=== PATIENT | female | born 1965 | race Caucasian/White ===

== ENCOUNTER 2017-08-16 14:42 | Emergency (ER) | payer SELFPAY ==
--- NOTE | 2017-08-16 15:59 | ED ---
Adult Trauma - HPI Summary HPI Summary: 51 yr old female with the complaint of left side chest wall pain and back pain. THe patient fell at work three days ago, and landed on her side. She has pain in the mid t spine, and also in the left lateral ribs. Pain is 7/10, worse with movement and change in position. Denies SOB. No other injuries. No LOC. No neck pain. No numbness or weakness in arms or legs. - History of Current Complaint Chief Complaint: UCChestPain Stated Complaint: WC - FALL,RIB COMPLAINT Time Seen by Provider: 08/16/17 15:45 - Allergy/Home Medications Allergies/Adverse Reactions: Allergies Allergy/AdvReac Type Severity Reaction Status Date / Time No Known Allergies Allergy Verified 08/16/17 15:16 Home Medications: Home Medications Ibuprofen TAB* [Advil TAB*] 600 mg PO Q6H PRN 08/16/17 [History Confirmed ] Levothyroxine TAB* [Synthroid TAB*] 88 mcg PO 0800 08/16/17 [History Confirmed 08/16/17] PMH/Surg Hx/FS Hx/Imm Hx Endocrine/Hematology History: Reports: Hx Thyroid Disease - s/p Thyroidectomy - Surgical History Surgery Procedure, Year, and Place: Thyroidectomy Infectious Disease History: No Infectious Disease History: Denies: Traveled Outside the [place] in Last 30 Days - Family History Known Family History: Positive: None - Social History Alcohol Use: Weekly Substance Use Type: Reports: None Smoking Status (MU): Heavy Every Day Tobacco Smoker Type: Cigarettes Amount Used/How Often: 1/2 PPD Length of Time of Smoking/Using Tobacco: Since Age 16 Have You Smoked in the Last Year: Yes Review of Systems Constitutional: Negative Positive: Other - chest wall pain All Other Systems Reviewed And Are Negative: Yes Physical Exam Triage Information Reviewed: Yes Vital Signs On Initial Exam: Initial Vitals Temp Pulse Resp BP Pulse Ox 98.4 F 78 16 130/72 97 08/16/17 15:13 08/16/17 15:13 08/16/17 15:13 08/16/17 15:13 08/16/17 15:13 Vital Signs Reviewed: Yes Appearance: Positive: Well-Appearing, No Pain Distress Skin: Positive: Warm, Skin Color Reflects Adequate Perfusion Head/Face: Positive: Normal Head/Face Inspection Eyes: Positive: EOMI ENT: Positive: Normal ENT inspection Neck: Positive: Nontender Respiratory/Lung Sounds: Positive: Clear to Auscultation, Breath Sounds Present , Other - tender over the left side of her chest with a small dime size bruise. Cardiovascular: Positive: RRR. Negative: Murmur Abdomen Description: Positive: Nontender Musculoskeletal: Positive: Strength/ROM Intact Neurological: Positive: Sensory/Motor Intact, Alert, Oriented to Person Place, Time, CN Intact II-III - [place] Coma Scale Best Eye Response: 4 - Spontaneous Best Motor Response: 6 - Obeys Commands Best Verbal Response: 5 - Oriented Diagnostics - Vital Signs Vital Signs Temp Pulse Resp BP Pulse Ox 08/16/17 15:13 98.4 F 78 16 130/72 97 - Laboratory Lab Statement: Any lab studies that have been ordered have been reviewed, and results considered in the medical decision making process. Adult Trauma Course/Dx - Course Course Of Treatment: 51 yr old with chest wall contusion, and neg xrays. DC home. - Diagnoses Provider Diagnoses: Contusion of left chest wall Discharge - Discharge Plan Condition: Good Disposition: HOME Prescriptions: Ibuprofen TAB* [Motrin TAB* 600 MG] 600 mg PO Q6H PRN #20 tab PRN Reason: Pain Patient Education Materials: Contusion in Adults (ED), Chest Wall Pain (ED) Referrals: Cari GORDON,David Mitchell [Primary Care Provider] - 1 Day
[2017-08-16 17:06] VITALS: BP 109/69
--- NOTE | 2017-08-16 17:31 | RAD ---
INDICATION: Left lateral rib pain and left chest pain after falling August 13, 2017 COMPARISON: None TECHNIQUE: PA and lateral views of the chest were obtained. FINDINGS: Postsurgical changes include surgical clips overlying the lower neck. An external metallic marker is noted overlying the left lateral lower ribs. The heart and mediastinum are normal in size and contour. The lungs are grossly clear. There is no evidence of large pleural effusion. No displaced rib fractures are identified. There is no radiographic evidence of free air beneath the diaphragm IMPRESSION: NO DISPLACED RIB FRACTURES OR EVIDENCE OF ACUTE CARDIOPULMONARY DISEASE.
--- NOTE | 2017-08-16 17:32 | RAD ---
INDICATION: Right flank pain after a fall COMPARISON: None. TECHNIQUE: 2 views of the thoracic spine were obtained. FINDINGS: The vertebra are in normal alignment. No fracture is seen. Degenerative changes include mild loss of intervertebral disc height.. IMPRESSION: No evidence of fracture or subluxation.
== END 2017-08-16 17:57 | disposition home or self-care (01) ==
LOC: UCCORT 14:42
DX: S20.212A Contusion of left front wall of thorax, initial encounter (principal); W19.XXXA Unspecified fall, initial encounter; Y93.9 Activity, unspecified; Y92.9 Unspecified place or not applicable; Y99.0 Civilian activity done for income or pay; E89.0 Postprocedural hypothyroidism; F17.210 Nicotine dependence, cigarettes, uncomplicated
CPT/HCPCS: 71046; 72070; 99212; G0463

== ENCOUNTER 2018-03-30 19:15 | Emergency (ER) | payer SELFPAY ==
[2018-03-30 19:42] VITALS: BP 133/75
--- NOTE | 2018-03-30 19:54 | UC ---
Ear Complaint HPI - HPI Summary HPI Summary: A 52 y/o female presents to ED c/o clogged ears and pain reaching 4/10 in severity. As per triage, "Bilateral ears clogged. Headache. Went swimming February 01. Progressively worse since then". According to the patient, she went swimming on February 01 2018 and she got water stuck in her ears. Since that moment on, it has been bothering her, howevver the last few days, she feels that she is under water. Additionally, she has a headache, runny nose and intermittent dizziness. She did have sneezing and coughing previously, but that had resolved a while ago. She noted that the ear pain is more apparent on the left than right and currently everything is "echoing. Plus, in the AM she feels fine, but when the afternoon hits when she is tired, the symptoms become more apparent. PMHx of mastoid surgery and vertigo. SHx of heavy smoker. Patient is in menopause. Patient has not taken any decongestants, but has been taking Ibuprofen for her headaches. - History of Current Complaint Chief Complaint: UCEar Stated Complaint: EAR ACHE Time Seen by Provider: 03/30/18 19:39 Hx Obtained From: Patient Onset/Duration: Sudden Onset, Lasting Weeks, Still Present Severity Initially: Moderate Severity Currently: Moderate Pain Intensity: 4 Pain Scale Used: 0-10 Numeric Aggravating Factors: Nothing Alleviating Factors: Nothing - Allergies/Home Medications Allergies/Adverse Reactions: Allergies Allergy/AdvReac Type Severity Reaction Status Date / Time No Known Allergies Allergy Verified 03/30/18 19:42 PMH/Surg Hx/FS Hx/Imm Hx Endocrine History: Diabetes - NEGATIVE Cardiovascular History: Hypertension - NEGATIVE Respiratory History: Asthma - NEGATIVE - Surgical History Surgical History: Yes Surgery Procedure, Year, and Place: Thyroidectomy - Family History Known Family History: Positive: Cardiac Disease, Other - Cancer, COPD, asthma Negative: Hypertension, Diabetes - Social History Alcohol Use: Weekly Substance Use Type: None Smoking Status (MU): Heavy Every Day Tobacco Smoker Type: Cigarettes Amount Used/How Often: 1/2 PPD Length of Time of Smoking/Using Tobacco: Since Age 16 Have You Smoked in the Last Year: Yes Household Exposure Type: Cigarettes Review of Systems Constitutional: Negative Skin: Negative Eyes: Negative ENT: Ear Ache - POSITIVE, Nasal Discharge - POSITIVE: Runny nose Respiratory: Negative Cardiovascular: Negative Gastrointestinal: Negative Genitourinary: Negative Motor: Negative Neurovascular: Negative Musculoskeletal: Negative Neurological: Headache, Other - POSITIVE: Intermittent dizziness Psychological: Negative Is Patient Immunocompromised?: No All Other Systems Reviewed And Are Negative: Yes Physical Exam - Summary Physical Exam Summary: General: well-appearing, no pain distress Skin: warm, color reflects adequate perfusion, dry Head: normal Eyes: EOMI, NETTA ENT: Both ear drums are retracted. Mild tenderness to palpation of bilateral tragi. Neck: supple, nontender Respiratory: CTA, breath sounds present Cardiovascular: RRR Abdomen: soft, nontender Bowel: present Musculoskeletal: normal, strength/ROM intact Neurological: sensory/motor intact, A&O x3 Psychological: affect/mood appropriate Triage Information Reviewed: Yes Vital Signs: Initial Vital Signs Temp 98 F 03/30/18 19:36 Pulse 66 03/30/18 19:36 Resp 16 03/30/18 19:36 BP 133/75 03/30/18 19:36 Pulse Ox 99 03/30/18 19:36 Vital Signs Reviewed: Yes Ear Complaint Course/Dx - Course Course Of Treatment: Medications reviewed. Allergies noted. - Differential Dx/Diagnosis Provider Diagnoses: B/L OTITIS EXTERNA AND SEROUS OTITIS MEDIA Discharge - Sign-Out/Discharge Documenting (check all that apply): Patient Departure - DISCHARGE All imaging exams completed and their final reports reviewed: No Studies - Discharge Plan Condition: Stable Disposition: HOME Prescriptions: Amoxicillin/Clavulanate TAB* [Augmentin TAB 875*] 875 mg PO BID #20 tab Neomyc/Polym/HC 1% OTIC SUSP* [Cortisporin Otic Susp 1%*] 4 drop BOTH EARS QID # 1 btl Patient Education Materials: Otitis Externa (ED), Serous Otitis Media (ED) Referrals: David Santana [Primary Care Provider] - Additional Instructions: FOLLOW UP WITH YOUR DOCTOR. DRINK PLENTY OF FLUIDS AND TRY SALINE NASAL SPRAY AND STEAM. TRY AN OVER THE COUNTER ANTIHISTAMINE SUCH CLARITIN OR XYZAL. GET RECHECKED FOR ANY WORSENING OF YOUR CONDITION OR QUESTIONS OR CONCERNS. - Billing Disposition and Condition Condition: STABLE Disposition: Home - Attestation Statements Document Initiated by Scribe: Yes Documenting Scribe: Jhon Hernandez Provider For Whom Scribe is Documenting (Include Credential): Mason Marie MD Scribe Attestation: I, Jhon Hernandez, scribed for Mason Marie MD on 03/30/18 at 2004. Scribe Documentation Reviewed: Yes Provider Attestation: The documentation as recorded by the scribe, Jhon Hernandez accurately reflects the service I personally performed and the decisions made by me, Mason Marie MD
== END 2018-03-30 20:00 | disposition home or self-care (01) ==
LOC: UCEAST 19:15
DX: H60.93 Unspecified otitis externa, bilateral (principal); H65.93 Unspecified nonsuppurative otitis media, bilateral; R42 Dizziness and giddiness; F17.210 Nicotine dependence, cigarettes, uncomplicated; R09.89 Other specified symptoms and signs involving the circulatory and respiratory systems
CPT/HCPCS: 99212; G0463

== ENCOUNTER 2019-02-26 17:30 | Emergency (ER) | payer OTHER ==
[2019-02-26 18:01] VITALS: BP 122/71
--- NOTE | 2019-02-26 18:03 | UC ---
Bite Injury/Animal HPI - HPI Summary HPI Summary: 53 yo female presents with cat bite to right arm. She tells me that yesterday morning her cat came to wake her up and they were playing. Bit pt on the right wrist/distal forearm. Pt cleansed the area with hydrogen peroxide. Today has noticed swelling and redness. States cat is UTD on vaccinations. Pt's last tetanus was within the last 5 years. She denies fever or chills. - History of Current Complaint Chief Complaint: REGINAkin Stated Complaint: RT ARM PAIN Time Seen by Provider: 02/26/19 18:02 Hx Obtained From: Patient Severity Currently: Mild Severity Initially: Mild Pain Intensity: 3 Pain Scale Used: 0-10 Numeric Type of Bite: Animal Has Animal Been Immunized?: Yes Character: Puncture - Allergies/Home Medications Allergies/Adverse Reactions: Allergies Allergy/AdvReac Type Severity Reaction Status Date / Time No Known Allergies Allergy Verified 02/26/19 18:01 PMH/Surg Hx/FS Hx/Imm Hx Endocrine History: Hypothyroidism - Surgical History Surgical History: Yes Surgery Procedure, Year, and Place: Thyroidectomy. tubal ligation. mastoid surgery. ear tubes age 2. tonsills and addenoids - Family History Known Family History: Positive: Cardiac Disease, Other - Cancer, COPD, asthma Negative: Hypertension, Diabetes - Social History Lives: With Family Alcohol Use: Weekly Substance Use Type: None Smoking Status (MU): Heavy Every Day Tobacco Smoker Type: Cigarettes Amount Used/How Often: 1/2 PPD Length of Time of Smoking/Using Tobacco: Since Age 16 Have You Smoked in the Last Year: Yes Household Exposure Type: Cigarettes - Immunization History Most Recent Tetanus Shot: within 5 years Review of Systems All Other Systems Reviewed And Are Negative: Yes Constitutional: Positive: Negative Skin: Positive: Other - cat bite Respiratory: Positive: Negative Cardiovascular: Positive: Negative Gastrointestinal: Positive: Negative Neurovascular: Positive: Negative Musculoskeletal: Positive: Negative Neurological: Positive: Negative Psychological: Positive: Negative Physical Exam - Summary Physical Exam Summary: GENERAL: NAD. WDWN. No pain distress. SKIN: RIGHT distal forearm with 1mm puncture wound at site of cat bite. Surrounding 2.5cm area of mild edema and erythema. No bleeding, discharge, open wound, or streaking. NECK: Supple. Nontender. No lymphadenopathy. CHEST: No accessory muscle use. Breathing comfortably and in no distress. CV: Pulses intact. Cap refill <2seconds MSK: FROM at right wrist without pain NEURO: Alert. PSYCH: Age appropriate behavior. Triage Information Reviewed: Yes Vital Signs: Initial Vital Signs Temp 98.4 F 02/26/19 17:57 Pulse 81 02/26/19 17:57 Resp 16 02/26/19 17:57 BP 122/71 02/26/19 17:57 Pulse Ox 97 02/26/19 17:57 Vital Signs Reviewed: Yes Bite Injury Course/Dx - Course Course Of Treatment: Cat bite right forearm. Rx for augmentin tetanus is UTD - Differential Dx/Diagnosis Provider Diagnosis: Cat bite of right upper arm Discharge - Sign-Out/Discharge Documenting (check all that apply): Patient Departure All imaging exams completed and their final reports reviewed: No Studies - Discharge Plan Condition: Stable Disposition: HOME Prescriptions: Amoxicillin/Clavulanate TAB* [Augmentin TAB 875*] 875 mg PO BID #14 tab Patient Education Materials: Animal Bite (ED) Referrals: David Alcala PA [Primary Care Provider] - Additional Instructions: If you develop a fever, shortness of breath, chest pain, new or worsening symptoms - please call your PCP or go to the ED immediately. - Billing Disposition and Condition Condition: STABLE Disposition: Home - Attestation Statements Provider Attestation: I was available for consult. This patient was seen by the RACHELE. The patient was not presented to, seen by, or examined by me. -Santiago
== END 2019-02-26 18:30 | disposition home or self-care (01) ==
LOC: UCEAST 17:30
DX: S51.851A Open bite of right forearm, initial encounter (principal); W55.01XA Bitten by cat, initial encounter; Y92.019 Unspecified place in single-family (private) house as the place of occurrence of the external cause; E03.9 Hypothyroidism, unspecified; F17.210 Nicotine dependence, cigarettes, uncomplicated
CPT/HCPCS: 99212; G0463